=== PATIENT | female | born 1960 | race Caucasian/White ===

== ENCOUNTER 2018-07-11 02:13 | Emergency (ER) | payer OTHER ==
--- NOTE | 2018-07-11 03:29 | Emergency Department Report ---
ED Psych HPI - General Chief Complaint: Psych Stated Complaint: ARM LACERATION Time Seen by Provider: 07/11/18 03:12 Source: patient Mode of arrival: Ambulatory - History of Present Illness Initial Comments: Mrs. Valenzuela is a 57 yo female who presents to ER with intentional self-harm. She cut her left forearm with a knife. She admits to hearing voices. She has not slept in 4 days. Unknown tetanus status. -: unknown Associated Psychiatric Symptoms: racing thoughts, auditory hallucinations Improves With: none Worsens With: none Context: other (unknown) Treatments Prior to Arrival: none - Related Data Allergies Allergy/AdvReac Type Severity Reaction Status Date / Time No Known Allergies Allergy Verified 07/11/18 02:36 ED Review of Systems ROS: Stated complaint: ARM LACERATION Other details as noted in HPI Comment: Unobtainable due to pts medical conditions (patient will not cooperate) ED Past Medical Hx - Past Medical History Previous Medical History?: No - Surgical History Past Surgical History?: No - Social History Smoking Status: Never Smoker Substance Use Type: None ED Physical Exam - General Limitations: No Limitations General appearance: alert, in no apparent distress, other (will follow commands but gives limited hx, smiling and nodding to self) - Head Head exam: Present: atraumatic, normocephalic - Eye Eye exam: Present: normal appearance - ENT ENT exam: Present: mucous membranes moist - Neck Neck exam: Present: normal inspection - Respiratory Respiratory exam: Present: normal lung sounds bilaterally. Absent: respiratory distress, wheezes, rales, rhonchi - Cardiovascular Cardiovascular Exam: Present: regular rate, normal rhythm, normal heart sounds. Absent: systolic murmur, diastolic murmur, rubs, gallop - GI/Abdominal GI/Abdominal exam: Present: soft, normal bowel sounds. Absent: distended, tenderness, guarding, rebound - Extremities Exam Extremities exam: Present: other (1 cm superficial laceration, minor excoriations left forearm, volar surface) - Neurological Exam Neurological exam: Present: alert, other (oriented to name) - Psychiatric Psychiatric exam: Present: other (labile mood, inappropriate laughter, responding to internal stimuli) - Skin Skin exam: Present: warm, dry, intact, normal color. Absent: rash ED Course Vital Signs 07/11/18 07/11/18 02:33 03:05 Temperature 98.1 F Pulse Rate 81 Respiratory 14 18 Rate Blood Pressure 168/75 O2 Sat by Pulse 97 Oximetry ED Medical Decision Making - Medical Decision Making acute psychosis, medically clear for psychiatric care, awaiting consultation Critical care attestation.: If time is entered above; I have spent that time in minutes in the direct care of this critically ill patient, excluding procedure time. ED Disposition Clinical Impression: Acute psychosis Disposition: DC-09 OP ADMIT IP TO THIS HOSP Is pt being admited?: No Does the pt Need Aspirin: No Condition: Stable
[2018-07-11 03:33] LABS: BUN/Creatinine Ratio 42; Blood Urea Nitrogen 38 mg/dL (7-17); Hemolysis Index 13
[2018-07-11] MEDS ORDERED: BOOSTRIX IM ONE (05:14)
[2018-07-11 05:25] LABS: Hematocrit 41.7 % (30.3-42.9); Hemoglobin 14.6 gm/dl (10.1-14.3); Mean Corpuscular HGB Conc 35 % (30-34); Mean Corpuscular Volume 99 fl (79-97); Platelet Count 177 K/mm3 (140-440); Red Blood Count 4.21 M/mm3 (3.65-5.03); Red Cell Distribution Width 13.8 % (13.2-15.2)
[2018-07-11 07:47] LABS: Amphetamine Screen,Urine PRESUMPTIVE NEGATIVE; Benzodiazepines Screen,Urine PRESUMPTIVE NEGATIVE; Cannabinoid Screen,Urine PRESUMPTIVE NEGATIVE; Cocaine Screen,Urine PRESUMPTIVE NEGATIVE; Methadone Screen,Urine PRESUMPTIVE NEGATIVE; Opiate Screen,Urine PRESUMPTIVE NEGATIVE
[2018-07-11 07:54] LABS: Bilirubin,Urine NEG (Negative); Blood,Urine SM (Negative); Color,Urine Amber (Yellow); Mucus,Urine 3+ /HPF; Urobilinogen,Urine < 2.0 mg/dL (<2.0)
[2018-07-11 08:08] LABS: Band Neutrophils # (Manual) 0.4 K/mm3; Basophils % (Manual) 0 % (0.0-1.8); Eosinophils % (Manual) 0 % (0.0-4.3); Total Cells Counted 100
[2018-07-11 08:09] LABS: Anisocytosis 1+; Platelet Estimate Consistent w Auto
--- NOTE | 2018-07-11 09:49 | Consultation ---
History of Present Illness - Reason for Consult Consult date: 07/11/18 Reason for consult: Mental Health Evaluation Requesting physician: ORIN BECKHAM - Chief Complaint Chief complaint: "The voices are bad" - History of Present Psychiatric Illness 57 y.o. femalw who presented to the ER for self harm to her left wrist. Today the patient is calm, but disorganized during the assessment. She was observed pacing in her room and mumbling. She was asked several questions about her mental health, her answers were not logical. She did acknowledge that she cut her left wrist because of the "voices." At this time, the patient is a poor historian. Medications and Allergies Allergies Allergy/AdvReac Type Severity Reaction Status Date / Time No Known Allergies Allergy Verified 07/11/18 02:36 Past psychiatric history - Past Medical History Past Medical History: other (Unable to obtain ) Past Surgical History: Other (Unabel to obtain ) - past Psychiatric treatment and history psychiatric treatment history: Unable to obtain a psy hx and fam psy hx. - Social History Social history: other (Unable to obtain ) Mental Status Exam - Vital signs Last Vital Signs Temp 99.2 F 07/11/18 07:00 Pulse 93 H 07/11/18 07:00 Resp 18 07/11/18 07:00 BP 139/92 07/11/18 07:00 Pulse Ox 97 07/11/18 07:00 - Exam Narrative exam: MSE: Appearance: in hospital attire Behavior: poor eye contact Speech: regular rate and tone Mood: preoccupied Affect: congruent to mood Thought Process: disorganized Thought Content: responding to some type of stimuli, possibly paranoid Motor Activity: pacing Cognition: alert Insight: poor Judgment: poor s Results Result Diagrams: 07/11/18 02:44 07/11/18 02:44 Abnormal lab results 07/11/18 07/11/18 07/11/18 Range/Units 02:44 02:44 02:44 Hgb (10.1-14.3) gm/dl MCV (79-97) fl MCH (28-32) pg MCHC (30-34) % BUN 38 H (7-17) mg/dL Glucose 112 H (65-100) mg/dL Urine WBC (Auto) (0.0-6.0) /HPF Salicylates < 0.3 L (2.8-20.0) mg/dL Acetaminophen < 5.0 L (10.0-30.0) ug/mL 07/11/18 07/11/18 Range/Units 02:44 07:10 Hgb 14.6 H (10.1-14.3) gm/dl MCV 99 H (79-97) fl MCH 35 H (28-32) pg MCHC 35 H (30-34) % BUN (7-17) mg/dL Glucose (65-100) mg/dL Urine WBC (Auto) 14.0 H (0.0-6.0) /HPF Salicylates (2.8-20.0) mg/dL Acetaminophen (10.0-30.0) ug/mL All other labs normal. Assessment and Plan Assessment and plan: Impression: Unspecified Psychosis. Today the patient is calm, but disorganized during the assessment. Self harm behavior. The patient is responding to some ty pe of stimuli. DDx: Schizophrenia, Bipolar DO with psychosis Recommendation/Plan: Continue 1013 and start Zyprexa 5 mg PO HS for psychosis. Attempted to discuss possible metabolic side effects of Zyprexa with the patient. Dispo: The patient was referred to inpatient psy services. Will staff with Dr. Yony Jain
--- NOTE | 2018-07-12 09:59 | Progress Note ---
Subjective - Reason for Consult Consult date: 07/12/18 Reason for consult: Psychiatry Follow-up - Chief Complaint Chief complaint: "This has happened before" 57 y.o. female who presented to the ER for self harm to her left wrist. Today the patient is calm, but still disorganized during the assessment. She did mention that this has happened to her before (current presentation). She could not elaborate more when asked, because the patient is preoccupied. No gestures of SI/HI's. No indications of side effects of her medication. Mental Status Exam - Vital signs Last Vital Signs Temp 97.6 F 07/12/18 08:02 Pulse 75 07/12/18 08:02 Resp 18 07/12/18 08:54 BP 113/75 07/12/18 08:02 Pulse Ox 99 07/12/18 08:02 - Exam Narrative exam: MSE: Appearance: in hospital attire Behavior: poor eye contact Speech: regular rate and tone Mood: preoccupied Affect: congruent to mood Thought Process: disorganized Thought Content: no gestures of SI/HI's responding to some type of stimuli, possibly paranoid Motor Activity: pacing Cognition: alert Insight: poor Judgment: poor s Assessment and Plan Impression: Unspecified Psychosis. Today the patient is calm, but disorganized during the assessment. Self harm behavior. The patient is responding to some type of stimuli. DDx: Schizophrenia, Bipolar DO with psychosis Recommendation/Plan: Continue 1013 and Zyprexa 5 mg PO HS for psychosis. Attempted to discuss possible metabolic side effects of Zyprexa with the patient. Dispo: The patient was referred to inpatient psy services. Will staff with Dr. Yony Jain
--- NOTE | 2018-07-13 12:51 | Progress Note ---
Subjective - Reason for Consult Consult date: 07/13/18 Reason for consult: Psychiatry Follow-up - Chief Complaint Chief complaint: "Hello" 57 y.o. female who presented to the ER for self harm to her left wrist. Today the patient is calm and during the assessment. She was able to state that she was . She stated that her and now she's . She stated that she has a daughter that reside in [place]. It took the patient several minutes to answer questions. She denies SI/HI's and VH's. No indications of side effects of her medication. Mental Status Exam - Vital signs Last Vital Signs Temp 97.6 F 07/13/18 05:00 Pulse 55 L 07/13/18 10:59 Resp 18 07/13/18 10:59 BP 132/86 07/13/18 10:59 Pulse Ox 99 07/13/18 10:59 - Exam Narrative exam: MSE: Appearance: calm Behavior: poor eye contact Speech: regular rate and tone Mood: somewhat preoccupied Affect: congruent to mood Thought Process: circumstantial Thought Content: denies SI/HI's and VH''s, still responding to some type of stimuli Cognition: A/O x3 Insight: variable Judgment: variable s Assessment and Plan Impression: Unspecified Psychosis. Today the patient is calm during the assessm ent. Self harm behavior. The patient is still responding to some type of stimuli. DDx: Schizophrenia, Bipolar DO with psychosis Recommendation/Plan: Continue 1013 and Zyprexa 5 mg PO HS for psychosis. Attempted to discuss possible metabolic side effects of Zyprexa with the patient. Dispo: The patient was referred to inpatient psy services. Will staff with Dr. Yony Jain
[2018-07-13] MEDS ORDERED: MACROBID PO ONE (17:42)
[2018-07-13 17:47] VITALS: BP 116/73
== END 2018-07-13 19:43 | disposition admitted as inpatient to this hospital (09) ==
LOC: ED 02:13 → EEVIPCON 02:13 → ED 07-13 19:43
DX: F29 Unspecified psychosis not due to a substance or known physiological condition (principal); M79.632 Pain in left forearm
CPT/HCPCS: 36415; 80048; 80307; 81001; 85007; 85025; 90715; 96372; 99285; G0480; 80320

== ENCOUNTER 2018-10-27 10:24 | Outpatient (CLI) | payer OTHER ==
[2018-10-27 11:48] LABS: Blood Urea Nitrogen 29 mg/dL (7-17)
--- NOTE | 2018-10-27 13:42 | Cat Scan Report ---
CT of the abdomen and pelvis without and with contrast INDICATION: Renal mass COMPARISON: None FINDINGS: The initial noncontrast images show no renal or ureteral calculi. No stone fragments seen i n the bladder. No dystrophic calcifications. Postcontrast images show clear lung bases. The liver, sp kayli, pancreas and adrenal glands show no significant abnormalities with slight nodularity of the lef t adrenal gland probably benign. There are no right renal masses. The left kidney contains a 7.6 x 6. 6 cm low density which measures 8 Hounsfield units precontrast. On the immediate postcontrast images the mass measures 10 Hounsfield units indicating no enhancement consistent with a cyst. Left kidney i s otherwise unremarkable. No definite gallbladder or biliary tree abnormality. No fluid or adenopathy in the upper abdomen. CT of the pelvis shows slight prominence and lobulation of the uterus probably due to fibroids. No ad nexal masses. No pelvic fluid or adenopathy. No definite bladder wall thickening or filling defects. Lung windows show no significant skeletal lesions. IMPRESSION: Simple left renal cyst. Otherwise no significant abnormality. Automated exposure control was utilized to diminish radiation dose. Signer Name: Jarocho Leyva MD Signed: 10/27/2018 1:38 PM Workstation Name: [id number]
== END 2018-10-27 10:25 | disposition home or self-care (01) ==
LOC: CT 10:24
PROVIDERS: ATTEND Urology
DX: N28.1 Cyst of kidney, acquired (principal)
CPT/HCPCS: 36415; 74178; 82565; 84520; Q9967